=== PATIENT | male | born 1980 | race Caucasian/White ===

== ENCOUNTER 2019-05-20 11:08 | Emergency (ER) | payer SELFPAY ==
[~2019-05-20] VITALS: Ht 188 cm; Wt 88.6 kg
[2019-05-20 11:11] VITALS: BP 123/79; Ht 188 cm; Wt 88.6 kg
== END 2019-05-20 11:49 | disposition home or self-care (01) ==
LOC: D.ER 11:08
DX: Z71.1 Person with feared health complaint in whom no diagnosis is made (principal)